=== PATIENT | male | born 1955 | race Caucasian/White ===

== ENCOUNTER → 2017-01-03 | Outpatient (CLI) | payer BC ==
[~2017-01-03] MED LIST: AMTUNK PO; BISO10TA14 PO; CYCL0.052 OP; FLUT1SPR12; GABA800T PO; METH500T37 PO; OMEP40CA18 PO; ONDA8TAB6 PO; OXYC-106 PO; OXYC60TA8 PO; PROB1CHW4 PO
[2017-01-03 13:25] LABS: CALCIUM 8.8 mg/dl (8.5-10.1)
[2017-01-03 13:45] LABS: THYROID STIMULATING HORMONE 0.276 uIu/ml (0.300-4.500)
== END | disposition home or self-care (01) ==
LOC: C.LABMFLN 08:22
PROVIDERS: ATTEND Physician Assistant
DX: E83.51 Hypocalcemia (principal)